=== PATIENT | male | born 2000 | race Caucasian/White ===

== ENCOUNTER 2020-09-12 15:50 | Emergency (ER) | payer MEDICAID ==
[~2020-09-12] VITALS: Ht 175.3 cm; Wt 100.7 kg
[2020-09-12 16:16] VITALS: BP 124/71
--- NOTE | 2020-09-12 16:57 | NUR ---
4 INCH KYLIE WRAP.
== END 2020-09-12 17:11 | disposition home or self-care (01) ==
LOC: ER 15:55
DX: M25.572 Pain in left ankle and joints of left foot (principal)